=== PATIENT | female | born 1975 | race Caucasian/White ===

== ENCOUNTER 2017-11-07 19:11 | Emergency (ER) | payer OTHER ==
[~2017-11-07] VITALS: Ht 165.1 cm; Wt 79.4 kg
[2017-11-07 19:17] VITALS: BP 136/87
[2017-11-07] MEDS ORDERED: KETOROLAC 30 MG/ML VIAL IVP ONE (20:00)
[2017-11-07] MEDS ORDERED: diphenhydrAMINE 50 MG/ML VIAL IVP ONE (20:00)
[2017-11-07] MEDS ORDERED: NACL 0.9% 1,000 ML IV ONE (20:00)
[2017-11-07] MEDS ORDERED: METOCLOPRAMIDE 10 MG/2 ML INJ VIAL IVP ONE (20:00)
[2017-11-07 20:30] LABS: BASOPHILS % (AUTO) 0.6 % (0.0-2.0); EOSINOPHILS # (AUTO) 0.1 K/uL (0-0.4); EOSINOPHILS % (AUTO) 1.8 % (0.0-4.0); HEMATOCRIT 40.2 % (36-48); HEMOGLOBIN 13.3 g/dL (12.0-16.0); LYMPHOCYTES % (AUTO) 29.3 % (20.5-51.1); MEAN CORPUSCULAR HEMOGLOBIN 29 pg (27-31); MEAN CORPUSCULAR HGB CONC 33 g/dL (33-37); MEAN CORPUSCULAR VOLUME 88.1 fL (80-94); MONOCYTES # (AUTO) 0.5 K/uL (0.8-1.0); MONOCYTES % (AUTO) 7.8 % (1.7-9.3); NEUTROPHILS # (AUTO) 4.1 K/uL (1.8-7.7); NEUTROPHILS % (AUTO) 60.5 % (42.2-75.2); PLATELET COUNT (AUTO) 171 K/uL (140-450); RED BLOOD CELL COUNT(AUTO) 4.56 MIL/uL (4.20-5.40); RED CELL DISTRIBUTION WIDTH 12.8 % (11.6-13.7); WHITE BLOOD COUNT (AUTO) 6.8 K/uL (4.8-10.8)
[2017-11-07 20:59] LABS: ANION GAP 12.9 (8-16); CARBON DIOXIDE 27.1 mmol/L (21-32); CREATININE 0.9 mg/dL (0.6-1.3)
[2017-11-07 21:06] LABS: ALBUMIN 3.7 g/dL (3.4-5.0); TOTAL BILIRUBIN 0.4 mg/dL (0.0-1.0)
[2017-11-07 22:05] VITALS: BP 122/81
== END 2017-11-07 22:05 | disposition home or self-care (01) ==
LOC: MED 19:11
DX: R51 Headache (principal); T39.8X5A Adverse effect of other nonopioid analgesics and antipyretics, not elsewhere classified, initial encounter; Z88.0 Allergy status to penicillin; Y92.89 Other specified places as the place of occurrence of the external cause
CPT/HCPCS: 36415; 70450; 71045; 80053; 81025; 83690; 85025; 93005; 96374; 96375; 99285; J1200; J1885; J2765; J7030; Q0092

== ENCOUNTER 2018-01-07 18:42 | Emergency (ER) | payer OTHER ==
[~2018-01-07] VITALS: Ht 165.1 cm; Wt 78.6 kg
[2018-01-07 18:53] VITALS: BP 117/82
--- NOTE | 2018-01-07 18:59 | NUR ---
PT AMBULATED TO ER BED 05
--- NOTE | 2018-01-07 19:05 | NUR ---
PT C/O SWELLING/PAIN RT LOWER EYELID X 3 DAYS; DENIES N/V/ OR DIZZINESS. PT REPORTS POSSIBLE BUG BITE TO RIGHT RESTORATION WHICH IS CAUSING SWELLING TO RIGHT EYE. PATIENT ALSO REPORTS SOME BLURRY VISION AND WATERY EYE. PATIENT STATES PAIN OF 5/10 AT THIS TIME; VSS; PATIENT POSITIONED FOR COMFORT; HOB ELEVATED; BEDRAILS UP X1; BED DOWN. ER MD MADE AWARE OF PT STATUS.
--- NOTE | 2018-01-07 19:07 | NUR ---
RECIEVED REPORT FROM CHELO PETTIT
--- NOTE | 2018-01-07 19:52 | NUR ---
Dr. Parsons evaluating patient at bedside.
[2018-01-07] MEDS ORDERED: SULFAMETH/TRIMETH DS 800/160MG 1 TAB PO ONE (20:05)
--- NOTE | 2018-01-07 20:10 | NUR ---
AWAITING DISCHARGE PAPERWORK FROM DR SLAUGHTER
--- NOTE | 2018-01-07 20:20 | NUR ---
PO MEDS GIVEN-NADR AT THIS TIME
[2018-01-07 20:27] VITALS: BP 111/75
--- NOTE | 2018-01-07 20:28 | NUR ---
Patient discharged with v/s stable. Written and verbal after care instructions given and explained. Patient alert, oriented and verbalized understanding of instructions. Ambulatory with steady gait. All questions addressed prior to discharge. ID band removed. Patient advised to follow up with PMD. Rx of PREDNISON 20MG, BACTRIM DS 800MG-160MG, BENADRYL 25MG given. Patient educated on indication of medication including possible reaction and side effects. Opportunity to ask questions provided and answered.
== END 2018-01-07 20:28 | disposition home or self-care (01) ==
LOC: MED 18:42
DX: S00.86XA Insect bite (nonvenomous) of other part of head, initial encounter (principal); L08.9 Local infection of the skin and subcutaneous tissue, unspecified; Z88.0 Allergy status to penicillin; W57.XXXA Bitten or stung by nonvenomous insect and other nonvenomous arthropods, initial encounter; Y93.89 Activity, other specified; Y92.89 Other specified places as the place of occurrence of the external cause; Y99.8 Other external cause status
CPT/HCPCS: 99283

== ENCOUNTER 2018-04-15 19:31 | Emergency (ER) | payer OTHER ==
[~2018-04-15] VITALS: Ht 165.1 cm; Wt 82.2 kg
[2018-04-15 19:41] VITALS: BP 137/71
[2018-04-15] MEDS ORDERED: KETOROLAC 60 MG/2 ML VIAL IM ONE (22:20)
[2018-04-15 22:32] VITALS: BP 131/76
== END 2018-04-15 22:33 | disposition home or self-care (01) ==
LOC: MED 19:31
DX: J11.1 Influenza due to unidentified influenza virus with other respiratory manifestations (principal); N12 Tubulo-interstitial nephritis, not specified as acute or chronic
CPT/HCPCS: 71045; 81002; 81025; 96372; 99283; J1885; Q0092

== ENCOUNTER 2022-12-22 20:18 | Emergency (ER) | payer OTHER ==
[~2022-12-22] VITALS: Ht 165.1 cm; Wt 59.0 kg
[2022-12-22 20:42] VITALS: BP 123/70; PULSE 81; RESP 19; TEMP 97.4; O2SAT 100
[2022-12-22] MEDS ORDERED: KETOROLAC 15 MG/ML VIAL IM ONE (21:00)
[2022-12-22] MEDS ORDERED: ACETAMINOPHEN EXTRA STRENGTH 500 MG TAB PO ONE (21:00)
[2022-12-22] MEDS ORDERED: methocarbamoL 500 MG TAB PO STA (22:51)
[2022-12-22] MEDS ORDERED: MORPHINE SULFATE 4 MG/ML SYR IM ONE (23:25)
[2022-12-22] MEDS ORDERED: IBUP-2213 PO (23:31)
[2022-12-23] MEDS ORDERED: METH-1681 PO (00:21)
[2022-12-23 00:22] VITALS: BP 135/76; PULSE 80; RESP 16; O2SAT 98
== END 2022-12-23 00:22 | disposition home or self-care (01) ==
LOC: MED 20:18
DX: S93.491A Sprain of other ligament of right ankle, initial encounter (principal); S61.233A Puncture wound without foreign body of left middle finger without damage to nail, initial encounter; W18.30XA Fall on same level, unspecified, initial encounter; Y93.89 Activity, other specified; Y92.89 Other specified places as the place of occurrence of the external cause; Y99.8 Other external cause status
CPT/HCPCS: 29515; 73130; 73610; 73630; 96372; 99284; J1885; J2270; Q0092